=== PATIENT | female | born 2000 | race Caucasian/White ===

== ENCOUNTER 2022-11-27 10:49 | Outpatient (CLI) | payer SELFPAY ==
[2022-11-27 11:25] LABS: HCT - HEMATOCRIT 39.7 % (37.0-47.0); HGB - HEMOGLOBIN 13.1 g/dL (12.0-16.0); MEAN PLATELET VOLUME 9.6 fL (7.9-10.8); RED BLOOD COUNT 4.51 10^6/uL (4.20-5.40); RED CELL DISTRIBUTION WIDTH 13.6 % (12.0-15.0); WHITE BLOOD COUNT 14.2 x10^3/uL (4.8-10.8)
--- NOTE | 2022-11-27 12:13 | Ultrasound Report ---
PROCEDURE: OB First Trimester w/TV INDICATIONS: TERMINATION IN 1ST TRI/ TST POS OUTSIDE/PRIOR DATING DATA: Last menstrual period (LMP): 10/08/2022. LMP-based estimated date of delivery (KIMBERLY): 07/15/2023. First dating scan (date and location): 11/27/2022. Estimated date of delivery (KIMBERLY) from first dating scan: 07/20/2023. TECHNIQUE: Real-time scanning was performed of the fetus and maternal pelvic organs, with image documentation. Endovaginal scanning was also performed to better visualize the fetus and maternal ovaries. COMPARISON: None FINDINGS: Embryo: Single live intrauterine with crown-rump length measuring 6 mm corresponding to 6 weeks 3 days. There is a small perigestational hemorrhage measuring 7 x 8 x 4 mm. Heart rate: 120 bpm. Measurement variability in dating: +/- 4 weeks by LMP, +/- 7 days by mean sac diameter (use before 6 weeks gestation if crown-rump length not able to be measured), +/- 5 days by crown-rump length (6-12 weeks gestation). Maternal organs: Ovaries demonstrate a right corpus luteal cyst. IMPRESSION: Single live intrauterine corresponding to 6 weeks 3 days. Small perigestational hemorrhage is noted. Recommend follow-up imaging at 20-22 weeks for dates and anatomy. Reviewed by: Griselda Clarke MD on 11/27/2022 12:11 PM PDT Approved by: Griselda Clarke MD on 11/27/2022 12:11 PM PDT Station ID: [id number]
== END 2022-11-27 10:50 | disposition home or self-care (01) ==
LOC: DI 10:49
PROVIDERS: ATTEND Nurse Practitioner
DX: O20.8 Other hemorrhage in early pregnancy (principal); Z3A.01 Less than 8 weeks gestation of pregnancy
CPT/HCPCS: 36415; 84702; 85027; 86900; 86901